=== PATIENT | female | born 1975 | race Caucasian/White ===

== ENCOUNTER 2020-05-07 13:26 | Outpatient (CLI) | payer BC, SELFPAY ==
--- NOTE | ~2020-05-07 | MM_ITS ---
EXAMINATION: MM screening [facility] BI w earl HISTORY: Screening mammogram TECHNIQUE: Craniocaudal and mediolateral oblique 3-D tomosynthesis images were obtained and synthetic 2-D images were generated. CAD analysis was submitted and interpreted. COMPARISON: 07/11/2019, 02/11/2018, 01/27/2017 bilateral digital screening mammogram examinations BREAST PARENCHYMAL COMPOSITION: There are scattered areas of fibroglandular density. FINDINGS: There is no evidence of suspicious mass, calcification, or architectural distortion to sugg est malignancy in either breast. There has been no suspicious interval change. IMPRESSION: 1. No mammographic evidence of malignancy. 2. Recommend routine screening mammography in one year. BI-RADS Category 1: Negative Reviewed, dictated and finalized at location A.
== END 2020-05-07 13:27 | disposition home or self-care (01) ==
LOC: CHSIMG 13:29
PROVIDERS: PCP Family Medicine; Visit Provider Obstetrics & Gynecology
DX: Z12.31 Encounter for screening mammogram for malignant neoplasm of breast (principal)
CPT/HCPCS: 77063; 77067

== ENCOUNTER 2020-08-24 12:31 | Outpatient (CLI) | payer BC, SELFPAY | END 2020-08-24 12:32 | disposition home or self-care (01) | LOC: CHSLAB 12:33 | PROVIDERS: PCP Family Medicine; Visit Provider Anesthesiology | DX: N81.10 Cystocele, unspecified (principal) | CPT/HCPCS: 87086; 87088 ==

== ENCOUNTER 2020-08-28 02:29 | Outpatient (CLI) | payer BC, SELFPAY ==
[2020-08-28 19:47] LABS: SARS-CoV-2 RNA PCR Negative
== END 2020-08-28 02:30 | disposition home or self-care (01) ==
LOC: ANHCOVIDDT 02:29
PROVIDERS: PCP Family Medicine; Visit Provider Urology
DX: Z01.812 Encounter for preprocedural laboratory examination (principal); Z20.828 Contact with and (suspected) exposure to other viral communicable diseases
CPT/HCPCS: 87635; C9803; U0003

== ENCOUNTER 2020-08-31 04:30 | Day surgery (SDC) | payer BC, SELFPAY ==
[2020-08-21 10:37] VITALS: BMI 34.7
--- NOTE | 2020-08-26 13:21 | PM.IMHP ---
H&P: HPI History of Present Illness Date/Time: 08/26/20 13:21 Chief complaint: cystocele Narrative: Lakeisha Coelho is a 44 year old female with a sympomatic cystocele Review of Systems Review of Systems: All systems reviewed & are unremarkable except as noted in HPI and below PMFSH Social History Social History Smoking status: Never smoker Spiritual care concerns: No Meds Home Medications and Allergies Home Medications Medication Instructions Recorded Confirmed Type No Home Medications 08/21/20 08/21/20 History Allergies Allergy/AdvReac Type Severity Reaction Status Date / Time No Known Allergies Allergy Unverified 08/21/20 10:38 Exam Const: General: cooperative, healthy appearing and comfortable HENMT: Head: normal to inspection Eyes: General: appearance normal, both eyes and all related structures Neck: Neck: normal visual inspection Resp: Effort & Inspection: normal respiratory effort and able to speak in complete sentences GI: Inspection: normal to inspection : Bimanual Exam- Adnexa, other: No normal (cystocele at +2) and No vaginal apex descent Back/Spine/Pelvis: Back: no CVA tenderness Skin: General skin exam: normal color Neuro: General: oriented to person and patient oriented x3 Assessment and Plan Assessment and plan (1) Cystocele: Qualifiers: Cystocele location: midline Qualified Code(s): N81.11 - Cystocele, midline Status: Acute Assessment and Plan: cystocele repair. Risks discussed including risk of recuarrence
--- NOTE | 2020-08-30 08:53 | P.PNAN_ITS ---
Anes - Initial Pre Proc Eval Procedure: Operation Date: 08/31/20 07:30 Proposed Procedures p Cystocele Repair - Linden Mackey MD Date/Time: 08/30/20 08:53 Surgeon: Linden Mackey MD Pre Op Diagnosis: cystocele Patient Data Age: 44 Gender: F Height: 1.68 m Weight: 97.52 kg Allergies Allergy/AdvReac Type Severity Reaction Status Date / Time No Known Allergies Allergy Verified 08/31/20 05:58 Home Medications Medication Instructions Recorded Confirmed Type No Home Medications 08/21/20 08/31/20 History Patient hx anesthesia problems: none Family hx anesthesia problems: none [facility] Surgical History Surgical History (Updated 08/30/20 @ 08:53 by Chance Garcia DO) History of arthroscopy of knee History of hysterectomy Social History Social History Smoking status: Never smoker Spiritual care concerns: No Anes - Eval Final PreProcedure Day of Procedure 08/30/20 08:53 Patient weight: obese Heart: regular rate and rhythm Lungs: clear to auscultation and normal air movement Airway: Mallampati scale class II Neurological: alert and oriented Last oral intake: >/= 8 hours ASA classification: II Emergent: no Anesthetic plan: proceed Anesthesia type and monitoring: general LMA and standard monitoring Informed Consent: The patient's anesthetic plan and its attendant risks and benefits were discussed with the patient/family/POA. Questions were solicited and answers provided to the satisfaction of the patient/family/POA.
[2020-08-31] VITALS (8 sets, daily range): BP systolic 92–124; BP diastolic 49–86; PULSE 47–78; RESP 10–16; TEMP 36.2–36.8; O2SAT 99–100
[2020-08-31] MEDS: LACTATED RINGERS 1,000 ML 30 ML IV CONT ×2 (06:21→08:49)
--- NOTE | 2020-08-31 07:13 | WPDHPUPDATE1 ---
History and Physical Update Update Date/Time: 08/31/20 07:13 History and Physical has been reviewed, including an updated exam of the patient. There are NO changes in the patient's condition. Risks, benefits, and alternatives have been discussed and questions answered. Patient agrees to proceed with procedure.
[2020-08-31] MEDS: ceFAZolin 2 GM/D5W 50 ML 2 GM/50 ML BAG IVPB (07:32)
[2020-08-31] MEDS: KETOROLAC 30 MG/ML VIAL (*BKC) IV PUSH (08:09)
--- NOTE | 2020-08-31 08:31 | PM.PROC ---
Procedure Note - Detailed Date of procedure: 08/31/20 Pre-op diagnosis: cystocele Cystocele Female perineal laxity Post-op diagnosis: same Procedure performed: Cystocele repair/anterior colporrhaphy Perineoplasty Description of procedure: She understood the risks of bleeding, infection, damage to surrounding organs, dyspareunia, postoperative stress incontinence, and recurrence of prolapse. She agrees to proceed. She has correctly identified and informed consent was obtained and she was brought to the operating room. She was given general anesthesia. She was placed in the dorsal thigh position. She was prepped and draped in sterile fashion. Given appropriate perioperative antibiotics. A time-out was performed. I placed a Carmona catheter. I placed a [place] retractor. I infiltrated the subcutaneous tissues of the anterior vaginal wall with local mixed with injectable saline. I made a midline vaginal incision. I dissected out laterally dissecting the mucosa off the underlying fascial structures. I dissected towards the vaginal apex as well. I then performed a standard cystocele repair with plicating sutures of 0 Vicryl. This reduced the cystocele. I then trimmed excess vaginal mucosa. I closed the vaginal closed with a running 2 0 Vicryl suture in a horizontal mattress fashion. There was excellent hemostasis. I then performed cystoscopy. The bladder is examined. There is no surgical artifact or injury. Both ureteral orifices were patent as confirmed by passing a guidewire. She had quite a bit of perineal laxity. I opted to perform a perineorrhaphy. I anesthetized the isaac-shaped area of skin in the perineum. I removed this area of skin. I performed the perineorrhaphy with interrupted 0 Vicryl suture. I used 2 0 Vicryl to close the mucosa. There is excellent perineal support. There was no undue narrowing of the vagina. At the conclusion she was awakened and transferred to the PACU in stable condition. Sponge count is correct x2. Implants: None Anesthesia: GETA Surgeon: Linden Mackey MD Drains: No Packing: No Pathology: none sent Complications: No immediate complications Condition: stable Disposition: PACU
== END 2020-08-31 10:31 | disposition home or self-care (01) ==
PROVIDERS: PCP Family Medicine; Visit Provider Urology
PROC: (CPT 57240; principal; 2020-08-31 07:30)
DX: N81.10 Cystocele, unspecified (principal); E66.9 Obesity, unspecified; Z68.34 Body mass index [BMI] 34.0-34.9, adult
CPT/HCPCS: 57240; A9270; C1758; C1769; J0690; J1100; J1885; J2250; J2405; J2704; J3010; J7030; J7120

== ENCOUNTER 2021-04-23 12:20 | Outpatient (CLI) | payer BC, SELFPAY ==
--- NOTE | ~2021-04-23 | XR_ITS ---
XR knee LT 3V DATE: 04/23/2021 12:36 INDICATION: Left knee pain TECHNIQUE: 3 views COMPARISON: None FINDINGS: There is periarticular spurring at all 3 compartments, most prominent at the medial compart ment and lateral compartment, with moderately prominent loss of height of the medial compartment join t space. No fracture or dislocation or joint effusion. No periosteal reaction or bone destruction. No radiopa que intra-articular loose body. No chondrocalcinosis. IMPRESSION: Tricompartment osteoarthritis, most pronounced at the medial and patellofemoral compartme nts Reviewed, dictated and finalized at location B. IMPRESSION: Tricompartment osteoarthritis, most pronounced at the medial and pa tellofemoral compartments
== END 2021-04-23 12:21 | disposition home or self-care (01) ==
LOC: CHSIMG 12:22
PROVIDERS: PCP Family Medicine; Visit Provider Family Medicine
DX: M25.562 Pain in left knee (principal)
CPT/HCPCS: 73562

== ENCOUNTER 2021-05-13 14:56 | Outpatient (RCR) | payer BC, SELFPAY ==
--- NOTE | 2021-05-13 16:15 | PTOPEVAL ---
Thank you for referring Lakeisha Coelho to [facility].? The patient is scheduled to be seen for therapy? ____x/week for ___ weeks. Please review, sign, date and return this plan of care JUAN. I agree with and certify that the following plan of care is medically necessary. Referring Physician Date Admitting Provider: Attending Provider: Pb Perez, MD Referring Provider: *PT Outpatient Evaluation Start: 05/13/21 15:04 Freq: Status: Active Protocol: Document 05/13/21 15:04 ACR (Rec: 05/13/21 16:14 ACR [id number]) Therapy Assessment Status Assessment Status Assessment Status Evaluation Outpatient Past Medical History Neurological History Hx Neurological Disorders No Significant History Cardiovascular History Hx Cardiac Disorders No Significant History Respiratory History Hx Respiratory Disorders No Significant History Gastrointestinal History Hx Gastrointestinal Disorders No Significant History Genitourinary History Hx Bladder Surgery Yes: laparoscopic sacrocolpopexy, bladder sling Hx Other Genitourinary Disorders Yes: CYSTOCELE Musculoskeletal History Hx Orthopedic Surgery Yes: L KNEE ARTHROSCOPY Hematological History Hx Hematological Disorders No Significant History Endocrine History Hx Endocrine Disorders No Significant History HEENT History Hx HEENT Disorders No Significant History Integumentary History Hx Skin Disorders No Significant History Reproductive History Hx Hysterectomy Yes: FOR PROLAPSED UTERUS Psychosocial History Hx Psychiatric Disorders No Significant History Pain History History of Any Previous or Ongoing No Significant History Instance of Pain Anesthesia History Hx Post-Op Nausea/Vomiting Yes Evaluation Information Problem Diagnosis L knee pain Onset 04/12/21 Subjective Information Patient states that her knee Query Text:As Reported By Patient/ started to really bother her Family recently, but feels she is on her feet a lot lately. Patient states she is unable to kneel . She states she fell on her knee in a kneeling position on the concrete due to it giving out. Patient states that she has difficulty with prolonged standing/walking, squatting, stairs, and lifting. Patient states it hurts the worse with standing and reports it feels like a knife is stabbing her
--- NOTE | 2021-06-20 09:00 | PTOPEVAL ---
Thank you for referring Lakeisha Coelho to [facility].? The patient is scheduled to be seen for therapy? ____x/week for ___ weeks. Please review, sign, date and return this plan of care JUAN. I agree with and certify that the following plan of care is medically necessary. Referring Physician Date Admitting Provider: Attending Provider: Pb Perez, Referring Provider: *PT Outpatient Evaluation Start: 05/13/21 15:04 Freq: Status: Active Protocol: Document 06/20/21 08:03 ACR (Rec: 06/20/21 08:59 ACR [id number]) Therapy Assessment Status Assessment Status Assessment Status Discharge Outpatient Past Medical History Neurological History Hx Neurological Disorders No Significant History Cardiovascular History Hx Cardiac Disorders No Significant History Respiratory History Hx Respiratory Disorders No Significant History Gastrointestinal History Hx Gastrointestinal Disorders No Significant History Genitourinary History Hx Bladder Surgery Yes: laparoscopic sacrocolpopexy, bladder sling Hx Other Genitourinary Disorders Yes: CYSTOCELE Musculoskeletal History Hx Orthopedic Surgery Yes: L KNEE ARTHROSCOPY Hematological History Hx Hematological Disorders No Significant History Endocrine History Hx Endocrine Disorders No Significant History HEENT History Hx HEENT Disorders No Significant History Integumentary History Hx Skin Disorders No Significant History Reproductive History Hx Hysterectomy Yes: FOR PROLAPSED UTERUS Psychosocial History Hx Psychiatric Disorders No Significant History Pain History History of Any Previous or Ongoing No Significant History Instance of Pain Anesthesia History Hx Post-Op Nausea/Vomiting Yes Evaluation Information Problem Diagnosis L knee pain Onset 04/12/21 Subjective Information Patient reports since Query Text:As Reported By Patient/ beginning therapy she is doing Family much better. She no longer has significant pain after being on her feet for too long . She states she has some soreness on the medial side of the knee with steps and if she sits at her desk for too long in the bent position. Overall she is able to move perform all of her daily activities with minimal pain and feels much stronger. Pain Assessment Timing of Pain Assessment Timing of Pain Assessment Assessment Pain Scale Pain Scale Used
== END 2021-06-20 08:48 | disposition home or self-care (01) ==
LOC: CHSPT 14:56
PROVIDERS: PCP Family Medicine; Visit Provider Orthopaedic Surgery
DX: M17.12 Unilateral primary osteoarthritis, left knee (principal)
CPT/HCPCS: 97014; 97016; 97110; 97112; 97161; 97530; G0283

== ENCOUNTER 2021-07-03 13:00 | Emergency (ER) | payer OTHER, BC, SELFPAY ==
[2021-07-03 13:13] VITALS: BP 150/78; PULSE 72; RESP 20; TEMP 36.4; O2SAT 98
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
[2021-07-03] MEDS: SILVER SULFADIAZINE 1% CR 50 GM JAR (*BKC) 1 APPLIC TOPICAL (17:31)
[2021-07-03 17:43] VITALS: BP 131/64; PULSE 77; RESP 18; TEMP 37; O2SAT 98
== END 2021-07-03 17:45 | disposition home or self-care (01) ==
PROVIDERS: Emergency Provider Emergency Medicine; PCP Family Medicine
DX: T23.272A Burn of second degree of left wrist, initial encounter (principal); T31.0 Burns involving less than 10% of body surface; X10.2XXA Contact with fats and cooking oils, initial encounter
CPT/HCPCS: 16020; 99283; A9270

== ENCOUNTER 2022-08-19 11:55 | Outpatient (CLI) | payer OTHER, SELFPAY ==
--- NOTE | ~2022-08-19 | MM_ITS ---
EXAMINATION: MM screening [facility] BI w earl HISTORY: Screening mammogram TECHNIQUE: Craniocaudal and mediolateral oblique 3-D tomosynthesis images were obtained and synthetic 2-D images were generated. CAD analysis was submitted and interpreted. COMPARISON: 05/07/2020, 06/10/2019, 03/10/2018 bilateral screening mammogram examinations BREAST PARENCHYMAL COMPOSITION: There are scattered areas of fibroglandular density. FINDINGS: There is no evidence of suspicious mass, calcification, or architectural distortion to sugg est malignancy in either breast. There has been no suspicious interval change. IMPRESSION: 1. No mammographic evidence of malignancy. 2. Recommend routine screening mammography in one year. BI-RADS Category 1: Negative Reviewed, dictated and finalized at location A. CAL AIDE
== END 2022-08-19 11:56 | disposition home or self-care (01) ==
LOC: CHSIMG 11:58
PROVIDERS: PCP Family Medicine; Visit Provider Obstetrics & Gynecology
DX: Z12.31 Encounter for screening mammogram for malignant neoplasm of breast (principal)
CPT/HCPCS: 77063; 77067

== ENCOUNTER 2024-11-14 06:57 | Outpatient (CLI) | payer OTHER, SELFPAY ==
--- NOTE | ~2024-11-14 | MM_ITS ---
EXAMINATION: MM screening [facility] BI w earl HISTORY: Screening mammogram TECHNIQUE: Craniocaudal and mediolateral oblique 3-D tomosynthesis images were obtained and synthetic 2-D images were generated. CAD analysis was submitted and interpreted. COMPARISON: 08/19/2022, 05/07/2020, 07/11/2019 BREAST PARENCHYMAL COMPOSITION:Not Dense. There are scattered areas of fibroglandular density. FINDINGS: No suspicious mass, calcification, or architectural distortion are identified in either jaky ast to suggest malignancy. There has been no suspicious interval change. IMPRESSION: No mammographic evidence of malignancy. Recommend routine screening mammography in one year. BI-RADS Category 1: Negative Reviewed, dictated and finalized at location . SALES REPRESENTATIVE
--- OUTSIDE RECORDS SUMMARY | 2024-11-14 07:02 | XMS_ITS | Clinical Summary ---
Author Organization [facility] Address [address] [place] [address]. [place], [place] [id number] [place] [id number] Care Team Providers Care Marketing Data Specialist Name Role Phone Darci Avitia MD Primary Care Provider [phone] Allergies No known active allergies Medications methylPREDNISolone , DAVEY, 4 MG tabletIndications: Primary osteoarthritis of left knee Follow package directions 1 each Active Active Problems Problem Noted Date Diagnosed Date Primary osteoarthritis of left knee 05/07/2021 Shoulder impingement, right 07/15/2019 Biceps tendinitis of right shoulder 07/15/2019 Family History Medical History Relation Comments Heart Father Relation Status Comments Father Alive Mother Alive Social History Tobacco Use Types Packs/Day Years Used Date Smoking Tobacco: Never Smokeless Tobacco: Never Alcohol Use Standard Drinks/Week Comments Yes 0 (1 standard drink = 0.6 oz pur e alcohol) AUDIT-C Answer Date Recorded Frequency of Alcohol Consumption Monthly or less 07/15/2019 Average Number of Drinks Not asked 019 Frequency of Binge Drinking Never 01/2019 Comments Unknown Sex and Gender Information Value Date Recorded Sex Assigned at Not on file 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 Gender Identity Not on file Sexual Orientation Not on file Last Filed Vital Signs Vital Sign Reading Time Taken Comments Blood Pressure - - Pulse - - Temperature - - Respiratory Rate - - Oxygen Saturation - - Inhaled Oxygen Concentration - - Weight 99.8 kg (220 lb) 05/07/2021 9:37 AM CDT Height 167.6 cm (5' 6 ) 05/07/2021 9:37 AM CDT Body Mass Index 35.51 05/07/2021 9:37 AM CDT Plan of Treatment Health Maintenance Due Date Last Done Comments Colorectal Cancer Screening Colonoscopy (10 Years) 1974 Annual Physical 1977 Hepatitis C 1992 DTaP, Tdap and Td Vaccines ( 1 - Tdap) 1993 Hepatitis B Vaccines (1 of 3 - 19+ 3-dose series) 1993 Mammogram Screening 2014 COVID-19 Vaccine (1 - 2023-2 5 season) 2024 Influenza Adult (#1) 2024 Meningococcal B Vaccine Aged Out No l onger eligible based on patient's age to complete this topic Meningococcal Vaccine Aged Out No shikha nisreen eligible based on patient's age to complete this topic Pneumococcal Vaccine: Pediat rics (0 to 5 Years) and At-Risk Patients (6 to 64 Years) Aged Out No longer eligible b ased on patient's age to complete this topic RSV Immunizations Under 20 Months Aged Out No longer eligible based on patient's age to complete this topic Insurance [facility] Care Teams Marketing Data Specialist Relationship Specialty Start Date End Date Darci Avitia MD [address] [place] [phone] PCP - General FAMILY PRACTICE 08/12/19
== END 2024-11-14 06:58 | disposition home or self-care (01) ==
LOC: CHSIMG 07:01
PROVIDERS: PCP Family Medicine; Visit Provider Obstetrics & Gynecology
DX: Z12.31 Encounter for screening mammogram for malignant neoplasm of breast (principal)
CPT/HCPCS: 77063; 77067